=== PATIENT | female | born 1990 | race Caucasian/White ===

== ENCOUNTER 2021-05-09 04:21 | Emergency (ER) | payer MEDICAID, SELFPAY ==
[2021-05-09 04:30] VITALS: BP 133/84; PULSE 107; RESP 22; TEMP 37; O2SAT 100; BMI 23.0
--- NOTE | 2021-05-09 04:34 | XRR_ITS ---
PROCEDURE INFORMATION: Exam: XR Chest Exam date and time: 05/09/2021 3:42 AM Age: 30 years old Clinical indication: Cough and shortness of breath; Patient HX: Cough with SOB. Covid + in February. History of asthma. TECHNIQUE: Imaging protocol: XR of the chest. Views: 1 view. COMPARISON: No relevant prior studies available. FINDINGS: Lungs: Unremarkable. No consolidation. Pleural spaces: Unremarkable. No pleural effusion. No pneumothorax. Heart/Mediastinum: Unremarkable. No cardiomegaly. Bones/joints: Unremarkable. XR/XR chest 1V portable [id number] IMPRESSION: No acute findings.
--- NOTE | 2021-05-09 04:35 | ECG_ITS ---
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 Measurements Intervals [place] Rate: 96 P: 49 FL: 159 QRS: 10 QRSD: 82 T: 35 QT: 319 QTc: 405 Interpretive Statements SINUS RHYTHM LOW QRS VOLTAGE IN PRECORDIAL LEADS [QRS DEFLECTION < 1.0 mV IN CHEST LEADS] No previous ECG available for comparison Electronically Signed On 05-09-2021 17:56:07 CDT by Kiran Frances M.D. [id number]
--- NOTE | 2021-05-09 04:36 | ED_ITS ---
HPI - General Adult General: Chief complaint: General Medical Stated complaint: Coughing\Asthma\ Time Seen by Provider: 05/09/21 04:24 Source: patient Mode of arrival: ambulatory Limitations: no limitations History of Present Illness: 30-year-old female who is currently 6 to 7 weeks has a history of asthma. States she has been having a ongoing cough since Thursday. States she saw her PCP has been on amoxicillin twice daily since then. States her cough is not improved she is also had some dyspnea. States she has been doing albuterol breathing treatments at home. She is tachycardic here and states she gets that way when she does her albuterol inhaler. Denies any vomiting or diarrhea denies any chest pain denies any extremity swelling has no complaints no vaginal bleeding. Associated symptoms: Reports dyspnea; Deny chest pain, headache(s), nausea, rash or vomiting Review of Systems Const: Denies: fever(s), chills, body aches or change in appetite Eyes: Denies: blurry vision or eye discomfort ENMT: Denies: throat pain or dental pain Card: Denies: chest pain Resp: Reports: dyspnea and non-productive cough GI: Denies: abdominal pain, nausea, vomiting or diarrhea : Denies: dysuria Musc: Denies: neck pain or back pain Skin/Breast: Denies: rash Neuro: Denies: headache(s) Psych: Denies: depression Charanjit/Lymph: Denies: easy bruising All/Imm: Denies: urticaria PFSH ED PFSH: Family History Grandmother Cancer, Onset Age: 80 breast cancer Grandfather Cancer, Onset Age: 80 throat Social History Smoking and tobacco status: former smoker (vape) Alcohol intake: never Adopted: No Caregiver/support person: No Lives independently: No Household members: spouse and children Marital status: service: No History of recent travel: No Sexually active: Yes Current gender identity: Female Physical Exam Const: COMMON NORMALS: no acute distress, patient oriented x3 and healthy appearing HENMT: COMMON NORMALS: normocephalic and atraumatic HEAD & SCALP: normocephalic and atraumatic Eye: COMMON NORMALS: Equal, round and reactive pupils present and EOMs intact bilaterally PUPIL: Yes Equal, round and reactive pupils present Neck/C-Spine: COMMON NORMALS: full ROM and supple Chest: COMMONS NORMALS: normal inspection of the chest and normal palpation of entire chest wall Resp: COMMON NORMALS: normal respiratory effort, No retractions, No use of accessory muscles and clear to auscultation bilaterally AUSCULTATION: clear to auscultation bilaterally Cardio: COMMON NORMALS: regular rhythm and No murmurs present (Cardio) RATE: tachycardic RHYTHM: regular rhythm GI: COMMON NORMALS: Normal to inspection, nondistended, normoactive bowel sounds present, Soft to palpation, non-tender and no masses PALPATION: Yes Soft to palpation Extremity: COMMON NORMALS: normal to inspection and full ROM Neuro: COMMON NORMALS: patient oriented x3, moves all extremities and no focal motor deficits Psych: COMMON NORMALS: mental status grossly normal, Normal thought process present and cooperative THOUGHT PROCESS: Normal thought process present Skin: COMMON NORMALS: no rashes or lesions noted and no wounds GENERAL SKIN EXAM: no rashes or lesions noted Course Vital Signs: Vital signs: Vital Signs Temperature 98.6 F 05/09/21 04:30 Pulse Rate 102 H 05/09/21 04:47 Respiratory Rate 18 05/09/21 04:47 Blood Pressure 133/84 05/09/21 04:30 Pulse Oximetry 99 05/09/21 04:47 [facility] - General Adult Medical Decision Making Patient presents here with cough some dyspnea patient's blood work here is all normal x-ray shows no pneumonia her heart rates improved as well she is stable for discharge. She is to follow-up with PCP and return if worsening she understands agrees to plan. Lab Data : 05/09/21 04:43 05/09/21 04:43 Laboratory Results WBC 5.4 10^3/uL (4.0-10.0) 05/09/21 04:43 RBC 4.38 10^6/uL (4.1-5.3) 05/09/21 04:43 Hgb 13.9 g/dL (11.5-15.3) 05/09/21 04:43 Hct 40.9 % (37.0-47.0) 05/09/21 04:43 MCV 93.4 fl (81-99) 05/09/21 04:43 MCH 31.7 pg (28.0-34.0) 05/09/21 04:43 MCHC 34.0 g/dL (30.0-36.0) 05/09/21 04:43 RDW 13.0 % (12.1-15.1) 05/09/21 04:43 Plt Count 289 10^3/cmm (130-400) 05/09/21 04:43 MPV 9.8 fL (7.4-10.4) 05/09/21 04:43 Neut % (Auto) 63.9 % 05/09/21 04:43 Lymph % (Auto) 21.3 % 05/09/21 04:43 [place] % (Auto) 10.8 % 05/09/21 04:43 Eos % (Auto) 3.2 % 05/09/21 04:43 Baso % (Auto) 0.4 % 05/09/21 04:43 Neut # (Auto) 3.42 10^3/uL (1.8-7.7) 05/09/21 04:43 Lymph # (Auto) 1.1 10^3/uL (0.8-4.8) 05/09/21 04:43 [place] # (Auto) 0.6 10^3/uL (0.2-0.9) 05/09/21 04:43 Eos # (Auto) 0.2 10^3/uL (0.0-0.8) 05/09/21 04:43 Baso # (Auto) 0.0 10^3/uL (0.0-0.1) 05/09/21 04:43 Nucleated RBC % (auto) 0 % 05/09/21 04:43 Nucleated RBCs # 0.0 /100WBC 05/09/21 04:43 Sodium 135 mmol/L (136-145) L 05/09/21 04:43 Potassium 4.0 mmol/L (3.5-5.1) 05/09/21 04:43 Chloride 101 mmol/L (98-107) 05/09/21 04:43 Carbon Dioxide 22 mmol/L (22-29) 05/09/21 04:43 Anion Gap 16.0 (5-19) 05/09/21 04:43 BUN 6 mg/dL (6-20) 05/09/21 04:43 Creatinine 0.6 mg/dL (0.5-0.9) 05/09/21 04:43 GFR Calculation 116.6 mL/min (90-130) 05/09/21 04:43 Glucose 96 mg/dL (65-115) 05/09/21 04:43 Calculated Osmolality 277 mOsm/kg (285-295) L 05/09/21 04:43 Calcium 9.5 mg/dL (8.5-10.5) 05/09/21 04:43 Total Bilirubin 0.2 mg/dL (0.15-1.2) 05/09/21 04:43 AST 14 U/L (0-32) 05/09/21 04:43 ALT 14 U/L (0-33) 05/09/21 04:43 Alkaline Phosphatase 56 IU/L (35-105) 05/09/21 04:43 NT-Pro-B Natriuret Pep 23 pg/mL (0-125) 05/09/21 04:43 Total Protein 7.3 g/dL (6.6-8.7) 05/09/21 04:43 Albumin 4.5 g/dL (3.5-5.2) 05/09/21 04:43 Globulin 2.8 g/dL (1.3-4.6) 05/09/21 04:43 Influenza Type A Ag Negative (Negative) 05/09/21 04:43 Influenza Type B Ag Negative (Negative) 05/09/21 04:43 SARS-CoV-2 Ag (Rapid) Negative (Negative) 05/09/21 04:43 Discharge Plan Discharge Patient Disposition: Home Clinical Impression: Upper respiratory infection Condition: Stable Prescriptions: No Action amoxicillin 500 mg capsule 500 mg PO BID 10 Days Qty: 20 0RF Discharge Orders: Discharge ED (Routine); Ordered 05/09/21 Ordered By: Jennifer Duke Referrals: Elaine Bowles FNP [Primary Care Provider] - 1-3 days Discharge Diet: Advance as tolerated Discharge Activity: Resume usual activity Patient Instructions: Upper Respiratory Infection (ED) Coding Level of Care Code 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
[2021-05-09] MEDS: sodium chloride 0.9% 1,000 ML 999 ML IV (04:38)
[2021-05-09] MEDS: dexamethasone 10 mg/mL INJ IVP (04:38)
[2021-05-09 04:47] VITALS: PULSE 102; RESP 18; O2SAT 99
[2021-05-09 04:47] LABS: Basophils % 0.4 %; Eosinophils # 0.2 10^3/uL (0.0-0.8); Eosinophils % 3.2 %; Hematocrit 40.9 % (37.0-47.0); Hemoglobin 13.9 g/dL (11.5-15.3); Lymphocytes # 1.1 10^3/uL (0.8-4.8); Lymphocytes % 21.3 %; Mean Corpuscular Hemoglobin 31.7 pg (28.0-34.0); Mean Corpuscular Volume 93.4 fl (81-99); Mean Platelet Volume 9.8 fL (7.4-10.4); Monocytes # 0.6 10^3/uL (0.2-0.9); Monocytes % 10.8 %; Neutrophils # 3.42 10^3/uL (1.8-7.7); Neutrophils % 63.9 %; Nucleated Red Blood Cells % 0 %; Platelet Count 289 10^3/cmm (130-400); Red Blood Count 4.38 10^6/uL (4.1-5.3); White Blood Count 5.4 10^3/uL (4.0-10.0)
[2021-05-09 05:09] LABS: Influenza A by IFA Negative (Negative); Influenza B by IFA Negative (Negative); SARS Covid-2 Antigen Negative (Negative)
[2021-05-09 05:13] LABS: Alanine Aminotransferase 14 U/L (0-33); Albumin Level 4.5 g/dL (3.5-5.2); Alkaline Phosphatase 56 IU/L (35-105); Aspartate Amino Transferase 14 U/L (0-32); Blood Urea Nitrogen 6 mg/dL (6-20); Calcium 9.5 mg/dL (8.5-10.5); Carbon Dioxide 22 mmol/L (22-29); Chloride 101 mmol/L (98-107); Globulin 2.8 g/dL (1.3-4.6); Glomerular Filtration Rate 116.6 mL/min (90-130); Glucose 96 mg/dL (65-115); NT Pro B Type Natriuretic Pept 23 pg/mL (0-125); Osmolality Calculated 277 mOsm/kg (285-295); Sodium 135 mmol/L (136-145); Total Bilirubin 0.2 mg/dL (0.15-1.2); Total Protein 7.3 g/dL (6.6-8.7)
[2021-05-09 05:27] VITALS: BP 117/80; PULSE 106; O2SAT 100
== END 2021-05-09 05:28 | disposition home or self-care (01) ==
PROVIDERS: Emergency Provider Emergency Medicine; PCP Registered Nurse
DX: J06.9 Acute upper respiratory infection, unspecified (principal); Z87.891 Personal history of nicotine dependence; Z20.822 Contact with and (suspected) exposure to COVID-19
CPT/HCPCS: 71045; 80053; 83880; 85025; 87426; 87804; 93005; 96360; 99284; J1100; J7030

== ENCOUNTER → 2022-01-28 15:08 | Outpatient (BNVA) | payer MEDICAID, SELFPAY | PROVIDERS: PCP Registered Nurse; Visit Provider Nurse Practitioner | DX: R68.89 Other general symptoms and signs (principal) | CPT/HCPCS: 87400 ==

== ENCOUNTER → 2022-04-28 15:48 | Outpatient (BNVA) | payer MEDICAID, SELFPAY | PROVIDERS: PCP Registered Nurse; Visit Provider Registered Nurse | DX: R74.8 Abnormal levels of other serum enzymes (principal) | CPT/HCPCS: 80053; 85025 ==

== ENCOUNTER → 2022-09-16 11:23 | Outpatient (BNVA) | payer MEDICAID, SELFPAY | PROVIDERS: PCP Registered Nurse; Visit Provider Nurse Practitioner | DX: R07.9 Chest pain, unspecified (principal) | CPT/HCPCS: 80053; 84443; 85025 ==

== ENCOUNTER → 2022-10-13 09:23 | Outpatient (BNVA) | payer MEDICAID, SELFPAY | PROVIDERS: PCP Registered Nurse; Visit Provider Nurse Practitioner | DX: J02.9 Acute pharyngitis, unspecified (principal) | CPT/HCPCS: 87880 ==